=== PATIENT | female | born 1935 | race Caucasian/White ===

== ENCOUNTER 2017-04-17 06:58 | Day surgery (SDC) | payer MEDICARE, BC ==
[~2017-04-17 06:58] MED LIST: Dextrose 5%-0.45% NaCl 1,000 ML IV SCH; Midazolam 1 MG/ML 2 ML SDV ONE; Sodium Chloride 0.9% 10 ML Syringe FLUSH PRN; fentaNYL 100 MCG/2 ML SDV ONE
[2017-04-17] MEDS ORDERED: Midazolam 1 MG/ML 2 ML SDV IV ONE ×2 (06:59→07:37)
[2017-04-17] MEDS ORDERED: fentaNYL 100 MCG/2 ML SDV IV ONE ×2 (06:59→07:36)
[2017-04-17 09:05] VITALS: BP 121/83
--- NOTE | 2017-04-17 14:38 | OR ---
DATE: 04/17/2017 PROCEDURE: Esophagogastroduodenoscopy and multiple pinch biopsies. INSTRUMENT USED: GIF-Q180 Olympus video panendoscope. PREMEDICATIONS: No oral topical anesthesia used. Fentanyl 50 mcg intravenous, Versed 1 mg intravenous No PRESCRIPTION CLERK 1 fraction 50 mcg intravenous, nasal 2 L O2 cannula. The procedure was done under pulse oximetry, BP recording, and mining support worker. INDICATION: The patient with longstanding thrombocytosis and anemia with recent drop in hemoglobin value. Esophagogastroduodenoscopy is performed for detection of any active erosive lesions, malignancy also under consideration, H. pylori status to be determined, endoscopic hemostasis therapy if needed. DESCRIPTION OF PROCEDURE: The scope was passed with ease. Adequate visualization of the esophagus was made from proximal to distal areas. No upper esophageal lesions identified. No distal esophageal stricture. No uphill or downhill esophageal varices. No Celestina-Ochoa tear. No evidence of erosive esophagitis by [place] criteria. No esophageal polyp or tumor mass identified. Z-line was seen at around 40 cm distal to the oral verge, configuration consistent with grade 1 by ZAP classification. No proximal gastric varices noted. Gastric fundus examination by retroflexion showed no polypoid lesions, no gastric ulcer, malignant mass, or vascular ectasia identified. Duodenal bulb showed no ulcer. Visualized second part of the duodenum was unremarkable. Multiple pinch biopsies were taken from the gastric antrum and proximal body and sent for PyloriTek test for H. pylori, and if negative in an hour tissue is to be sent for histopathology. No bleeding was noted from any of the visualized areas at the completion of examination. Photographs were taken of the duodenal bulb, gastric antrum, fundus, and distal esophagus. IMPRESSION: Normal study. The patient tolerated the procedure well. [facility] /[id number]
--- NOTE | 2017-04-17 14:44 | LETTER ---
04/17/2017 Merna Albert NP [address] [place] [address] RE: DEE FLYNN : 1935 Dear Ms. Tsangfredy. Ms. Dee Flynn had esophagogastroduodenoscopy done this morning and she tolerated the procedure well. I herewith send a copy of the endoscopy note and photographs for your review. Thank you. Sincerely, [facility] /[id number]
== END 2017-04-17 09:56 | disposition home or self-care (01) ==
LOC: DL.ENDO 06:58
PROVIDERS: ATTEND Internal Medicine Gastroenterology
DX: K29.50 Unspecified chronic gastritis without bleeding (principal); I10 Essential (primary) hypertension; E66.9 Obesity, unspecified; E78.5 Hyperlipidemia, unspecified; E11.9 Type 2 diabetes mellitus without complications; E03.9 Hypothyroidism, unspecified; Z98.890 Other specified postprocedural states
CPT/HCPCS: 43239; 87077; J2250; J3010; J7042; 88305

== ENCOUNTER 2017-04-19 06:16 | Day surgery (SDC) | payer MEDICARE, BC ==
[~2017-04-19 06:16] MED LIST changes: -Dextrose 5%-0.45% NaCl 1,000 ML IV SCH; -Sodium Chloride 0.9% 10 ML Syringe FLUSH PRN
[2017-04-19] MEDS ORDERED: Midazolam 1 MG/ML 2 ML SDV IV ONE ×7 (06:17→07:14)
[2017-04-19] MEDS ORDERED: fentaNYL 100 MCG/2 ML SDV IV ONE ×4 (06:17→07:27)
[2017-04-19] MEDS ORDERED: Dextrose 5%-0.45% NaCl 1,000 ML IV SCH (07:00)
[2017-04-19] MEDS ORDERED: Sodium Chloride 0.9% 10 ML Syringe FLUSH PRN (07:00)
--- NOTE | 2017-04-19 08:06 | OR ---
DATE: 04/19/2017 PROCEDURE: Total colonoscopy. INSTRUMENT USED: PCF-H180AL Olympus video colonoscope. PREMEDICATIONS: Fentanyl 125 mcg intravenous, Versed 4 mg intravenous. Nasal O2 cannula. The procedure was done under pulse oximetry, BP recording, and cardiac cath tech. INDICATION: The patient with recent drop in hemoglobin, requiring packed cell transfusions, known thrombocytosis. Colonoscopic examination is done for detection of any polypoid lesions and removal, endoscopic hemostasis therapy if needed. DESCRIPTION OF PROCEDURE: Initial rectal exam showed external hemorrhoidal tags. Rigid anoscopy showed small internal hemorrhoids without bleeding from them. Few scattered diverticula were noted in the distal left colon along with deformity. The scope was passed with relative ease up to the ileocecal area. Photographs were taken of the normal-appearing cecum. No bleeding was noted from any of the visualized areas at the commencement of the examination. There was large amount of fecal material that had to be aspirated. No stricture. No vascular ectasia. No large isolated ulcerations seen. No evidence of diffuse inflammatory bowel disease in the form of friability, contact bleeding, or ulcerations. No polyp or tumor mass identified. Probing the proximal sides of folds and flexures, using adequate distention and clearing of the stool material, withdrawal of the scope was made, cecum to rectum time over 6 minutes. No bleeding was noted from any of the visualized areas at the completion of examination. IMPRESSION: 1. External and internal hemorrhoids. 2. Diverticulosis. The patient tolerated the procedure well. [facility] /[id number]
--- NOTE | 2017-04-19 08:51 | LETTER ---
04/19/2017 CIRO Gomez [facility] [address], [place] [address] RE: STEVEN FLYNN : 1935 Dear Ms. Albert: Ms. Flynn had colonoscopic examination done this morning and she tolerated the procedure well. I herewith send a copy of the endoscopy note and photographs for your review. Thank you. Sincerely, [facility] /[id number]
[2017-04-19 09:17] VITALS: BP 130/66
== END 2017-04-19 09:30 | disposition home or self-care (01) ==
LOC: DL.ENDO 06:16
PROVIDERS: ATTEND Internal Medicine Gastroenterology
DX: K64.8 Other hemorrhoids (principal); K64.4 Residual hemorrhoidal skin tags; K57.30 Diverticulosis of large intestine without perforation or abscess without bleeding; I10 Essential (primary) hypertension; E11.9 Type 2 diabetes mellitus without complications; E03.9 Hypothyroidism, unspecified; E66.9 Obesity, unspecified; E78.5 Hyperlipidemia, unspecified; Z98.890 Other specified postprocedural states; Z79.82 Long term (current) use of aspirin; D51.3 Other dietary vitamin B12 deficiency anemia
CPT/HCPCS: 45378; J2250; J3010; J7042

== ENCOUNTER 2019-09-18 06:36 | Day surgery (SDC) | payer MEDICARE, BC ==
[2019-09-18] MEDS ORDERED: fentaNYL 100 MCG/2 ML SDV IV ONE ×2 (06:37→07:25)
[2019-09-18] MEDS ORDERED: Midazolam 1 MG/ML 2 ML SDV IV ONE ×2 (06:37→07:26)
[2019-09-18] MEDS ORDERED: Sodium Chloride 0.9% 10 ML Syringe FLUSH PRN (07:34)
[2019-09-18] MEDS ORDERED: Dextrose 5%-0.45% NaCl 1,000 ML IV SCH (07:45)
--- NOTE | 2019-09-18 10:01 | OR ---
DATE: 09/18/2019 PROCEDURE: Esophagogastroduodenoscopy and multiple pinch biopsies. INSTRUMENT USED: GIF-HQ190 Olympus video panendoscope. PREMEDICATIONS: No oral or topical anesthesia used. Fentanyl 50 mcg intravenous, Versed 1 mg intravenous, nasal O2 cannula. The procedure was done under pulse oximetry, BP recording, and site monitor. INDICATION: The patient with anemia, iron deficiency as well as Hemoccult positive stools, on long-term aspirin. Esophagogastroduodenoscopy is performed for detection of any active erosive lesions, Cuellar esophagus and/or malignancy also under consideration, H pylori status to be determined, endoscopic hemostasis therapy if needed. The scope was passed with ease. Adequate visualization of the esophagus was made from proximal to distal areas. No upper esophageal lesions identified. No distal esophageal stricture. No uphill or downhill esophageal varices. No Celestina-Ochoa tear. No evidence of erosive esophagitis by [place] criteria. No esophageal polyp or tumor mass identified. Z-line was seen at around 39 cm distal to the oral verge, configuration consistent with grade 1 by ZAP classification. No proximal gastric varices noted. Gastric fundus examination by retroflexion showed no polypoid lesions. No gastric ulcer, malignant mass, or vascular ectasia identified. Prepyloric gastric antral erosion was noted without bleeding from them. Duodenal bulb showed no ulcer. Visualized second part of the duodenum was unremarkable. Multiple pinch biopsies were taken from the gastric antrum and proximal body and sent for PyloriTek test for H pylori, tissues to be sent for histopathology if PyloriTek negative. No bleeding was noted from any of the visualized areas at the completion of examination. Photographs were taken of the duodenal bulb, gastric antrum, fundus, and distal esophagus. IMPRESSION: Gastric antral erosion. The patient tolerated the procedure well. [facility] /[id number]
[2019-09-18 13:19] VITALS: BP 122/60; PULSE 67
== END 2019-09-18 10:00 | disposition home or self-care (01) ==
LOC: DL.ENDO 06:36
PROVIDERS: ATTEND Internal Medicine Gastroenterology
DX: D50.9 Iron deficiency anemia, unspecified (principal); R19.5 Other fecal abnormalities; K29.50 Unspecified chronic gastritis without bleeding; K21.9 Gastro-esophageal reflux disease without esophagitis; E11.9 Type 2 diabetes mellitus without complications; E03.9 Hypothyroidism, unspecified; E78.5 Hyperlipidemia, unspecified; J45.909 Unspecified asthma, uncomplicated; M81.0 Age-related osteoporosis without current pathological fracture; E66.09 Other obesity due to excess calories; Z79.82 Long term (current) use of aspirin
CPT/HCPCS: 43239; 87077; J2250; J3010; J7042

== ENCOUNTER 2019-12-25 22:58 | Emergency (ER) | payer MEDICARE, BC, MEDICAID ==
[2019-12-25 21:02] VITALS: BP 122/66; PULSE 116
--- NOTE | 2019-12-25 21:17 | EDM.PDOC ---
"ED HPI GENERAL MEDICAL PROBLEM - General Chief Complaint: Fever Stated Complaint: FEVER Time Seen by Provider: 12/25/19 21:05 Source of Information: Reports: Patient, Half-Way Records, Provider History Limitations: Reports: No Limitations - History of Present Illness INITIAL COMMENTS - FREE TEXT/NARRATIVE: This 84 yo female patient was brought to the ED due to vomiting (x2), having an elevated temp (103.3) and an elevated heart rate. The patient reports she has been coughing today. 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 The patient does have an appointment with [place] next week for continued evaluation and further management. The patient has been tested 2 times for COVID both results are negative with her most recent test being on 12/22/19. The patient was given 1 unit of blood on 12/23/19 due to her hemoglobin being 6.8. The patient's hemoglobin was 8.7 yesterday. The patient has also had a 30 pound weight loss. Onset: Today Duration: Constant Location: Reports: Generalized Quality: Reports: Other Severity: Moderate Improves with: Reports: None Worsens with: Reports: None Context: Reports: Other Associated Symptoms: Reports: No Other Symptoms - Related Data Allergies Allergy/AdvReac Type Severity Reaction Status Date / Time peas Allergy Rash Verified 12/25/19 21:07 Home Meds: Home Meds Acetaminophen [Tylenol Extra Strength] 500 mg PO BID 04/16/17 [History] Calcium Carbonate/Vitamin D3 [Calcium 600 + Vit D Tablet] 1 tab PO BID 04/16/17 [History] Cyanocobalamin (Vitamin B-12) [Cyanocobalamin Injection] 1,000 mcg IM .Q30DAY [History] Donepezil [Aricept] 10 mg PO BEDTIME 04/16/17 [History] Hydroxyurea [Hydrea] 500 mg PO BID 04/16/17 [History] Levothyroxine [Synthroid] 125 mcg PO DAILY 04/16/17 [History] Tolterodine Tartrate [Detrol LA] 4 mg PO DAILY 04/16/17 [History] gemfibroziL [Lopid] 600 mg PO BID 04/16/17 [History] Acetaminophen [Tylenol Extra Strength] 500 mg PO Q4H PRN 12/22/19 [History] Lactose-Reduced Food [Ensure] 237 ml PO BID 12/22/19 [History] Omeprazole 20 mg PO DAILY 12/22/19 [History] Past Medical History HEENT History: Reports: Cataract Cardiovascular History: Reports: High Cholesterol, Hypertension Respiratory History: Reports: None Gastrointestinal History: Reports: Other (See Below) Other Gastrointestinal History: gastric ulcer Genitourinary History: Reports: Other (See Below) Other Genitourinary History: overactive bladder 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: Musculoskeletal History: Reports: Back Pain, Chronic, Fracture Other Musculoskeletal History: S/P RIGHT RADIUS FRACTURE Neurological History: Reports: None Psychiatric History: Reports: None, Dementia Endocrine/Metabolic History: Reports: Osteopenia Hematologic History: Reports: Anemia, Idiopathic Thrombocytopenia Immunologic History: Reports: None Oncologic (Cancer) History: Reports: Breast Dermatologic History: Reports: None - Infectious Disease History Infectious Disease History: Reports: Chicken Pox, Mumps - Past Surgical History Head Surgeries/Procedures: Reports: None HEENT Surgical History: Reports: None Cardiovascular Surgical History: Reports: None Female Surgical History: Reports: Mastectomy Neurological Surgical History: Reports: None Oncologic Surgical History: Reports: Mastectomy Dermatological Surgical History: Reports: None Social & Family History - Family History Family Medical History: Noncontributory - Caffeine Use Caffeine Use: Reports: Coffee, Soda Caffeine Use Comment: 2 cups ED ROS GENERAL - Review of Systems Review Of Systems: Comprehensive ROS is negative, except as noted in HPI. ED EXAM, GENERAL - Physical Exam Exam: See Below Exam Limited By: No Limitations General Appearance: Alert, WD/WN, Mild Distress Eye Exam: Bilateral Eye: EOMI, Normal Inspection, PERRL Ears: Normal External Exam, Normal Canal, Hearing Grossly Normal, Normal TMs Nose: Normal Inspection, Normal Mucosa, No Blood Throat/Mouth: Normal Inspection, Normal Lips, Normal Teeth, Normal Gums, Normal Oropharynx, Normal Voice, No Airway Compromise Head: Atraumatic, Normocephalic Neck: Normal Inspection, Supple, Non-Tender, Full Range of Motion Respiratory/Chest: No Respiratory Distress, Lungs Clear, Normal Breath Sounds, No Accessory Muscle Use, Chest Non-Tender Cardiovascular: Normal Peripheral Pulses, Regular Rate, Rhythm, No Edema, No Gallop, No JVD, No Murmur, No Rub GI/Abdominal: Normal Bowel Sounds, Soft, Non-Tender, No Organomegaly, No Distention, No Abnormal Bruit, No Mass (Female) Exam: Deferred Rectal (Female) Exam: Deferred Back Exam: Normal Inspection, Full Range of Motion, NT Extremities: Normal Inspection, Normal Range of Motion, Non-Tender, Normal Capillary Refill, No Pedal Edema Neurological: Alert, Oriented, CN II-XII Intact, Normal Reflexes, No Motor/ Sensory Deficits Psychiatric: Normal Affect, Normal Mood Skin Exam: Dry, Intact, Normal Color, No Rash, Increased Warmth Lymphatic: No Adenopathy Course - Vital Signs Last Recorded V/S: Last Vital Signs Temp 38.1 C 12/25/19 20:59 Pulse 116 H 12/25/19 20:59 Resp 28 H 12/25/19 20:59 BP 122/66 12/25/19 20:59 Pulse Ox 94 L 12/25/19 20:59 - Orders/Labs/Meds Orders: Active Orders 24 hr Category Date Time Status CULTURE BLOOD [BC] Stat Lab 12/25/19 20:58 Ordered CULTURE BLOOD [BC] Stat Lab 12/25/19 20:58 Ordered UA RFX EL AND CULT IF INDIC [URIN] Urgent Lab 12/25/19 20:58 Ordered Blood Culture x2 Reflex Set [OM.PC] Stat Oth 12/25/19 20:58 Ordered Labs: Laboratory Tests 12/25/19 12/25/19 12/25/19 Range/Units 21:03 21:03 21:03 WBC 8.2 (5.0-10.0) 10^3/uL RBC 1.95 L (4.2-5.4) 10^6/uL Hgb 8.5 L D (12.0-16.0) g/dL Hct 26.2 L (37.0-47.0) % MCV 134.4 H (80-100) fL MCH 43.6 H (27.0-34.0) pg MCHC 32.4 L (33.0-35.0) g/dL Plt Count 578 H (150-450) 10^3/uL Neut % (Auto) 88.8 H (42.2-75.2) % Lymph % (Auto) 5.8 L (20.5-50.1) % Gage % (Auto) 5.2 (2-8) % Eos % (Auto) 0.1 L (1.0-3.0) % Baso % (Auto) 0.1 (0.0-1.0) % Sodium 129 L (136-145) mmol/L Potassium 4.2 (3.5-5.1) mmol/L Chloride 94 L (98-107) mmol/L Carbon Dioxide 25 (21-32) mmol/L Anion Gap 14.2 H (7-13) mEq/L BUN 26 H (7-18) mg/dL Creatinine 0.98 (0.55-1.02) mg/dL Est Cr Clr Drug Dosing 31.79 mL/min Estimated GFR (MDRD) 54 BUN/Creatinine Ratio 26.5 (No establ ref range) Glucose 154 H (74-99) mg/dL Lactic Acid 1.7 (0.4-2.0) mmol/L Calcium 8.6 (8.5-10.1) mg/dL Total Bilirubin 6.1 H (0.2-1.0) mg/dL AST 160 H (15-37) U/L ALT 68 H (14-59) U/L Alkaline Phosphatase 395 H (46-116) U/L Total Protein 7.2 (6.4-8.2) g/dL Albumin 3.2 L (3.4-5.0) g/dL Globulin 4.0 Albumin/Globulin Ratio 0.80 Amylase 222 H (25-115) U/L Lipase > 1500 H (73-393) U/L SARS-CoV-2 RNA (RT-PCR) (NEGATIVE) 12/25/19 Range/Units 21:28 WBC (5.0-10.0) 10^3/uL RBC (4.2-5.4) 10^6/uL Hgb (12.0-16.0) g/dL Hct (37.0-47.0) % MCV (80-100) fL MCH (27.0-34.0) pg MCHC (33.0-35.0) g/dL Plt Count (150-450) 10^3/uL Neut % (Auto) (42.2-75.2) % Lymph % (Auto) (20.5-50.1) % Gage % (Auto) (2-8) % Eos % (Auto) (1.0-3.0) % Baso % (Auto) (0.0-1.0) % Sodium (136-145) mmol/L Potassium (3.5-5.1) mmol/L Chloride (98-107) mmol/L Carbon Dioxide (21-32) mmol/L Anion Gap (7-13) mEq/L BUN (7-18) mg/dL Creatinine (0.55-1.02) mg/dL Est Cr Clr Drug Dosing mL/min Estimated GFR (MDRD) BUN/Creatinine Ratio (No establ ref range) Glucose (74-99) mg/dL Lactic Acid (0.4-2.0) mmol/L Calcium (8.5-10.1) mg/dL Total Bilirubin (0.2-1.0) mg/dL AST (15-37) U/L ALT (14-59) U/L Alkaline Phosphatase (46-116) U/L Total Protein (6.4-8.2) g/dL Albumin (3.4-5.0) g/dL Globulin Albumin/Globulin Ratio Amylase (25-115) U/L Lipase (73-393) U/L SARS-CoV-2 RNA (RT-PCR) Negative (NEGATIVE) - Radiology Interpretation Free Text/Narrative:: PROCEDURE INFORMATION: Exam: XR Chest, 1 View Exam date and time: 12/25/2019 10:20 PM Age: 84 years old Clinical indication: Cough and fever TECHNIQUE: Imaging protocol: XR of the chest Views: 1 view. COMPARISON: No relevant prior studies available. FINDINGS: Lungs: Mild pulmonary vascular congestion. Possible early or mild CHF. Question of minimal basilar infiltrates on both sides, possibly a basilar pneumonia. Pleural space: Unremarkable. No pleural effusion. No pneumothorax. Heart/Mediastinum: Heart size at the upper limits of normal with LV fullness. Bones/joints: Unremarkable. Soft tissues: Surgical clips in the left axilla indicates some type previous surgery, possibly of the breast. Other findings: Respiratory motion artifact. IMPRESSION: 1. Possible early or mild CHF. 2. Question of minimal basilar infiltrates on both sides, possibly a basilar pneumonia. 3. No previous x-rays to compare. Thank you for allowing us to participate in the care of your patient. STEVEN DIAZ | Final Radiology Report CONFIDENTIALITY STATEMENT This report is intended only for use by the referring physician, and only in accordance with law. If you received this in error, call [phone]. Page 2 of 2 Dictated and Authenticated by: David Barry MD Departure - Departure Time of Disposition: 22:56 Disposition: DC/Tfer to [facility] 02 Condition: Serious Clinical Impression: Cholangitis - Discharge Information *PRESCRIPTION DRUG MONITORING PROGRAM REVIEWED*: Not Applicable *COPY OF PRESCRIPTION DRUG MONITORING REPORT IN PATIENT LISETTE: Not Applicable Forms: ED Department Discharge Care Plan Goals: Discussed the patient's history, examination, lab and x-ray results with Dr. Ordonez. Dr. Ordonez accepted the patient for continued evaluation and management. The patient was transported by [facility]. Sepsis Event Note - Focused Exam Vital Signs: Vital Signs Temp Pulse Resp BP Pulse Ox 12/25/19 20:59 38.1 C 116 H 28 H 122/66 94 L Date Exam was Performed: 12/25/19 Time Exam was Performed: 22:33 - My Orders Last 24 Hours: My Active Orders 12/25/19 20:58 CULTURE BLOOD [BC] Stat CULTURE BLOOD [BC] Stat UA RFX EL AND CULT IF INDIC [URIN] Urgent Blood Culture x2 Reflex Set [OM.PC] Stat - Assessment/Plan Last 24 Hours: My Active Orders 12/25/19 20:58 CULTURE BLOOD [BC] Stat CULTURE BLOOD [BC] Stat UA RFX EL AND CULT IF INDIC [URIN] Urgent Blood Culture x2 Reflex Set [OM.PC] Stat"
[2019-12-25 21:50] LABS: ANION GAP 14.2 mEq/L (7-13); CHLORIDE,CL 94 mmol/L (98-107); SODIUM,NA 129 mmol/L (136-145)
[~2019-12-25 22:58] MED LIST changes: -Midazolam 1 MG/ML 2 ML SDV ONE; +Piperacillin/Tazobactam 3.375 GM in Sodium Chloride 0.9% 100 ML IV ONE; +Sodium Chloride 0.9% 1,000 ML IV ONE; -fentaNYL 100 MCG/2 ML SDV ONE
== END 2019-12-25 23:26 ==
LOC: DL.ED 22:58
DX: K83.09 Other cholangitis (principal); I10 Essential (primary) hypertension; Z79.899 Other long term (current) drug therapy; Z91.018 Allergy to other foods
CPT/HCPCS: 36415; 71045; 80053; 82150; 83605; 83690; 85025; 87040; 96365; 99285; J2543; J7030; J7050; U0002